=== PATIENT | male | born 1935 | race Caucasian/White ===

== ENCOUNTER 2018-02-15 17:53 | Inpatient (IN) | payer OTHER, BC ==
[~2018-02-15] VITALS: Ht 175.3 cm; Wt 69.4 kg
[2018-02-15 20:52] LABS: BASOPHIL % 0.3 % (0-2); PLATELET COUNT 320 x10^3mcL (130-400); RED CELL DISTRIBUTION WIDTH 12.9 % (11.5-14.5)
[2018-02-15 20:56] LABS: CALCIUM 8.5 mg/dL (8.5-10.1); CARBON DIOXIDE 27.6 mmol/L (21-32); CHLORIDE SERUM 102 mmol/L (98-107); CREATININE SERUM 0.9 mg/dL (0.7-1.3); GLUCOSE SERUM 269 mg/dL (74-106); POTASSIUM SERUM 3.9 mmol/L (3.5-5.1); SODIUM SERUM 137 mmol/L (136-145)
[2018-02-15 21:03] LABS: ALBUMIN 2.7 g/dL (3.4-5.0); ALKALINE PHOSPHATASE 61 U/L (46-116); ALT/SGPT 30 U/L (16-63); AST/SGOT 29 U/L (15-37); BILIRUBIN TOTAL 0.52 mg/dL (0.20-1.00); CHOLESTEROL 109 mg/dL (<200); HDL CHOLESTEROL 37 mg/dL (40-60)
[2018-02-15 22:53] LABS: MAGNESIUM 1.8 mg/dL (1.8-2.4); PHOSPHOROUS 2.3 mg/dL (2.5-4.9); T3 TOTAL 0.9 ng/mL
[2018-02-15 22:54] LABS: CHOLESTEROL/HDL RATIO 3.1
[2018-02-15 22:55] VITALS: BP 150/60
[2018-02-15 23:09] LABS: FREE T4 1.69 ng/dL (0.76-1.46); FREE THYROXINE INDEX 3.1 ug/dL (1.4-4.5); T4(THYROXINE) 9.6 ug/dL (4.7-13.3)
[2018-02-16 02:54] LABS: RED BLOOD CELLS 3.35 M/mm3 (4.52-5.90)
[2018-02-16 04:18] LABS: IRON 16 ug/dL (65-170); TOTAL IRON BINDING CAPACITY 162 ug/dL (250-450)
[2018-02-16 05:27] LABS: microscopic required? NO
[2018-02-16 05:34] LABS: UA SPECIFIC GRAVITY <=1.005 (1.005-1.035); urine erythrocyte NEGATIVE (NEGATIVE)
[2018-02-16 05:42] VITALS: BP 162/55
[2018-02-16 05:42] LABS: AMPHETAMINE QUAL UR NONE DETECTED (NEG <=1000)
[2018-02-16 08:31] LABS: PLATELET COUNT 292 x10^3mcL (130-400)
[2018-02-16 08:34] LABS: BASOPHIL % 0 % (0-2)
[2018-02-16 08:56] LABS: CALCIUM 8.1 mg/dL (8.5-10.1); CARBON DIOXIDE 25.2 mmol/L (21-32); CHLORIDE SERUM 105 mmol/L (98-107); CREATININE SERUM 0.9 mg/dL (0.7-1.3); GLUCOSE SERUM 366 mg/dL (74-106); POTASSIUM SERUM 3.8 mmol/L (3.5-5.1); SODIUM SERUM 138 mmol/L (136-145)
[2018-02-16 10:10] VITALS: BP 125/89
[2018-02-16] MEDS ORDERED: AMLODIPINE BESYL5 M2 PO (10:44)
[2018-02-16] MEDS ORDERED: LANTI SC (10:44)
[2018-02-16] MEDS ORDERED: LIPITOR40 MG PO (10:44)
[2018-02-16 14:46] VITALS: BP 151/52
[2018-02-16 17:44] VITALS: BP 130/51
[2018-02-16 22:31] VITALS: BP 102/53
[2018-02-17 06:15] VITALS: BP 138/52
[2018-02-17 06:52] LABS: BASOPHIL % 0.2 % (0-2); PLATELET COUNT 295 x10^3mcL (130-400); RED CELL DISTRIBUTION WIDTH 12.8 % (11.5-14.5)
[2018-02-17 07:17] LABS: CALCIUM 7.9 mg/dL (8.5-10.1); CARBON DIOXIDE 25.5 mmol/L (21-32); CHLORIDE SERUM 107 mmol/L (98-107); CREATININE SERUM 0.9 mg/dL (0.7-1.3); GLUCOSE SERUM 90 mg/dL (74-106); PHOSPHOROUS 3.6 mg/dL (2.5-4.9); POTASSIUM SERUM 3.1 mmol/L (3.5-5.1); SODIUM SERUM 137 mmol/L (136-145)
[2018-02-17 09:41] VITALS: BP 130/44
[2018-02-17 09:57] VITALS: Ht 175.3 cm; Wt 69.4 kg
[2018-02-17 17:30] VITALS: BP 123/57
[2018-02-17 20:35] VITALS: BP 131/54
[2018-02-18 05:48] VITALS: BP 149/60
[2018-02-18 07:07] LABS: BASOPHIL % 0.2 % (0-2); PLATELET COUNT 311 x10^3mcL (130-400); RED CELL DISTRIBUTION WIDTH 13.1 % (11.5-14.5)
[2018-02-18 08:01] LABS: CALCIUM 7.9 mg/dL (8.5-10.1); CARBON DIOXIDE 27.7 mmol/L (21-32); CHLORIDE SERUM 106 mmol/L (98-107); CREATININE SERUM 0.9 mg/dL (0.7-1.3); GLUCOSE SERUM 77 mg/dL (74-106); POTASSIUM SERUM 3.8 mmol/L (3.5-5.1); SODIUM SERUM 137 mmol/L (136-145)
[2018-02-18 08:58] VITALS: BP 117/43
[2018-02-18] MEDS ORDERED: LEVAQUIN750 MG PO (13:14)
[2018-02-18] MEDS ORDERED: BD LACTINEX1.4 MG PO (13:15)
[2018-02-18] MEDS ORDERED: CLINDAMYCIN HC300 MG PO (13:15)
[2018-02-18] MEDS ORDERED: PREDNISONE10 MG PO (13:16)
[2018-02-18 13:41] VITALS: BP 117/43
== END 2018-02-18 15:20 | disposition home or self-care (01) | DRG 177 ==
LOC: ED 17:53 → DU 22:11
PROVIDERS: Emergency Medicine; Family Medicine; Family Medicine Sports Medicine
DX: J69.0 Pneumonitis due to inhalation of food and vomit (principal); E43 Unspecified severe protein-calorie malnutrition; D64.9 Anemia, unspecified; E11.65 Type 2 diabetes mellitus with hyperglycemia; E11.51 Type 2 diabetes mellitus with diabetic peripheral angiopathy without gangrene; I10 Essential (primary) hypertension; E83.39 Other disorders of phosphorus metabolism; Z85.46 Personal history of malignant neoplasm of prostate; Z68.22 Body mass index [BMI] 22.0-22.9, adult
CPT/HCPCS: 82962; 83880; 84439; 94150; 97110-GP; 97116-GP; 97530-GP; J1815; J1956; J2930; J3480; J3490; J7030; J7613; J7620; J7644; Q0092